=== PATIENT | male | born 1945 | race Caucasian/White ===

== ENCOUNTER 2025-01-23 15:00 | Emergency (ER) | payer OTHER, SELFPAY ==
[2025-01-23] VITALS (15 sets, daily range): BP systolic 116–145; BP diastolic 51–89; PULSE 64–87; TEMP 36.6–37.1; O2SAT 98–99; BMI 28.8
--- NOTE | 2025-01-23 15:26 | US_ITS ---
The [address] [address] Patient Name: WES WHITT MRN: [id number] date: 1945 Sex: M Assigned Patient Location: ED.MAIN Current Patient Location: ER Accession/Order Number: [id number] Exam Date: 01/23/2025 16:58 Report Date: 01/23/2025 17:06 At the request of: OANH MONTANA MD Procedure: US right upper quadrant Ultrasound right upper quadrant INDICATION: Abnormal labs, jaundice right upper quadrant pain for one week COMPARISON: CT abdomen pelvis 01/23/2025 FINDINGS: Unremarkable liver size. Slight heterogeneous echogenicity. This prominence of the intrahepatic ducts noted. The common bile duct measures 1.5 cm gallbladder wall 3.6 mm. Cholelithiasis noted. No definite pericholecystic fluid. Pancreas mostly obscured. US/US right upper quadrant IMPRESSION:: Heterogeneous liver with intrahepatic and extra hepatic biliary dilatation noted. Cholelithiasis and gallbladder wall thickening noted.. Obscured pancreas Impression dictated by: Camden Reynolds M.D. 01/23/2025 5:06 PM Dictation Location: [place] [address] Electronically authenticated by: [id number] Y Date: 01/23/2025 17:06
--- NOTE | 2025-01-23 15:27 | ECG_ITS ---
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 Measurements Intervals [place] Rate: 69 P: 52 CA: 150 QRS: 63 QRSD: 86 T: 26 QT: 364 QTc: 383 Interpretive Statements 1100 Sinus rhythm 9110 normal ECG Compared to ECG 05/13/2020 08:25:24 ST (T wave) deviation no longer present Electronically Signed On 01-24-2025 12:04:47 EDT by POLO COTA M.D.
--- NOTE | 2025-01-23 15:28 | ED_ITS ---
HPI HPI - General Adult General Chief complaint: Abdominal Pain Stated complaint: abnormal labs sent by dr jimenez Time Seen by Provider: 01/23/25 15:05 Source: patient Mode of arrival: walk-in Limitations: no limitations History of Present Illness HPI narrative: 79-year-old male presents for yellow eyes and epigastric pain. He was seen by his nurse practitioner today who sent him here. He notes recently his urine changed from normal to orange and now it's brown, like bourbon. He complains of mild epigastric pain and has never had these issues before. No fever or vomiting or diarrhea. He does not complain of chest pain or shortness of breath. Related Data Home Medications ?Medication ?Instructions ?Recorded ?Confirmed lisinopril 5 mg tablet 5 mg PO DAILY 01/23/2501/23 Allergies Allergy/AdvReac Type Severity Reaction Status Date / Time bee venom protein (honey bee) AdvReac Mild Swelling Verified 01/23/25 15:19 of Lip/Tongue/Throat Opioid HPI Opioid Management Most Recent Opioid Data: Last Pain Scale 7 Today, 15:25 Review of Systems ROS Narrative A ten point review of systems is negative except as noted above. PFSH PFSH Social History Little interest or pleasure in doing things: not at all Feeling down, depressed, or hopeless: not at all Exam Narrative Exam Narrative: Nurses note and vital signs reviewed and patient is not hypoxic. General: The patient appears well and in no apparent distress. Patient is resting comfortably on cart. Skin: Warm, dry, no pallor noted. There is no rash noted. Skin is minimally jaundiced. Head: Normocephalic, atraumatic Eye: Sclera are icteric Ears, Nose, Mouth, and Throat: oral mucosa is moist. Nares patent. Cardiovascular: Regular Rate and Rhythm Respiratory: Patient is in no distress, no accessory muscle use, lungs are clear to auscultation, no wheezing, rales or rhonchi Back: non-tender GI: Minimal tenderness in epigastric area Musculoskeletal: The patient has no evidence of calf tenderness, no pitting edema, symmetrical pulses noted bilaterally Neurological: A&O, normal speech Psychiatric: Cooperative Constitutional Vital Signs, click to edit/add: Last Vital Signs Temp 97.8 F 01/23/25 15:20 Pulse 68 01/23/25 17:30 Resp 22 H 01/23/25 17:30 BP 142/75 H 01/23/25 17:30 Pulse Ox 98 01/23/25 17:30 O2 Del Method Room Air 01/23/25 15:50 Course Vital Signs Vital signs: Vital Signs Blood Pressure 144/89 H 01/23/25 15:18 Pulse Oximetry 98 01/23/25 15:18 Temperature 97.8 F 01/23/25 15:20 Pulse Rate 68 01/23/25 17:30 Respiratory Rate 22 H 01/23/25 17:30 Blood Pressure 142/75 H 01/23/25 17:30 Pulse Oximetry 98 01/23/25 17:30 Oxygen Delivery Method Room Air 01/23/25 15:50 Medical Decision Making MDM Narrative Medical decision making narrative: The patient presents with jaundice and has elevated bilirubin of 11.7, 9.6 direct. White count is normal at 8.6 CT scan per radiologist as well as gallbladder ultrasound suggests enlarged common bile duct at 15 mm with some debris in the common bile duct. Case discussed with Dr. Jimenez and the patient and the patient is requesting transfer to [facility]. Differential Diagnosis Differential Diagnosis: Acute cholecystitis, common bile duct stone, hepatitis, pancreatic mass Lab Data Lab results reviewed: Yes I reviewed the patient's lab results Labs: Lab Results 01/23/25 01/23/25 Range/Units 15:40 15:43 WBC 8.6 (4.0-11.0) 10^3/uL RBC 4.82 (4.70-6.10) 10^6/uL Hgb 14.7 (14.0-18.0) g/dL Hct 43.5 (42.0-54.0) % MCV 90.2 (80.0-94.0) fL MCH 30.5 (25.9-34.0) pg MCHC 33.8 (29.9-35.2) g/dL RDW 13.7 (11.0-15.0) % Plt Count 290 (150-450) 10^3/uL MPV 9.1 L (9.5-13.5) fL Neut % (Auto) 79.0 H (43.0-75.0) % Lymph % (Auto) 9.9 L (20.5-60.0) % [place] % (Auto) 7.5 (1.7-12.0) % Eos % (Auto) 2.4 (0.9-7.0) % Baso % (Auto) 0.9 (0.2-2.0) % Neut # (Auto) 6.8 H (1.4-6.5) 10^3/uL Lymph # (Auto) 0.9 L (1.2-3.8) 10^3/uL [place] # (Auto) 0.7 (0.3-0.8) 10^3/uL Eos # (Auto) 0.2 (0.0-0.7) 10^3/uL Baso # (Auto) 0.1 (0.0-0.1) 10^3/uL Abs Immat Gran (auto) 0.03 (0.00-0.03) 10^3/uL Imm/Tot Granulo (auto) 0.3 (0.0-0.5) % Sodium 137 (136-145) mmol/L Potassium 4.4 (3.5-5.1) mmol/L Chloride 101 (98-107) mmol/L Carbon Dioxide 25.6 (21.0-32.0) mmol/L Anion Gap 14.8 BUN 18.0 (7.0-18.0) mg/dL Creatinine 1.16 (0.70-1.30) mg/dL Est GFR ( Amer) >60 (>=60 mL/min/1.73m^2) Est GFR (Non-Af Amer) >60 (>=60 mL/min/1.73m^2) BUN/Creatinine Ratio 15.5 Glucose 174 H (74-106) mg/dL Calcium 10.2 H (8.5-10.1) mg/dL Total Bilirubin 11.7 H (0.2-1.0) mg/dL Direct Bilirubin 9.6 H* (0.0-0.2) mg/dL AST 151 H (15-37) U/L ALT 311 H (16-63) U/L Alkaline Phosphatase 401 H (46-116) U/L Total Protein 7.3 (6.4-8.2) g/dL Albumin 3.3 L (3.4-5.0) g/dL Globulin 4.0 g/dL Albumin/Globulin Ratio 0.8 Amylase 32 (25-115) U/L Lipase 57.0 (16.0-77.0) U/L Urine Color Dk. orange (YELLOW) Urine Clarity Clear (CLEAR) Urine pH Color interference A (5.0-9.0) Ur Specific [place] 1.020 (1.005-1.025) Urine Protein Color interference A (NEG/TRACE) mg/dL Urine Glucose (UA) Color interference A (NEGATIVE) mg/dL Urine Ketones Color interference A (NEGATIVE) mg/dL Urine Occult Blood Color interference A (NEGATIVE) Urine Nitrite Color interference A (NEGATIVE) Urine Bilirubin Color interference A (NEGATIVE) Urine Urobilinogen Color interference A (0.2-1.0) EU/dL Ur Leukocyte Esterase Color interference A (NEGATIVE) Urine RBC 0-2 (0-2) #/HPF Urine WBC 2-5 A (NONE SEEN) #/HPF Ur Squamous Epith Cells Few A (NONE/RARE) #/LPF Urine Crystals None seen (None Seen) #/HPF Urine Bacteria Trace A (NONE SEEN) #/HPF Urine Casts None seen (NONE SEEN) #/LPF Urine Mucus Trace A (NONE SEEN) Ur Culture Indicated? No Imaging Data CT scan - abdomen: Radiologist's impression: ITS Impressions Upper Quadrant Ultrasound 01/23/25 15:26 IMPRESSION:: Heterogeneous liver with intrahepatic and extra hepatic biliary dilatation noted. Cholelithiasis and gallbladder wall thickening noted.. Obscured pancreas Impression dictated by: Camden Reynolds M.D. 01/23/2025 5:06 PM Dictation Location: [employer] Electronically authenticated by: [id number] Y Date: 01/23/2025 17:06 Abdomen/Pelvis CT 01/23/25 16:55 IMPRESSION: Intrahepatic intrahepatic biliary dilatation noted with questionable tapering distal common bile duct with common bile duct debris versus stones. Consider MRCP versus ERCP. Impression dictated by: Camden Reynolds M.D. 01/23/2025 5:13 PM Dictation Location: [employer] Electronically authenticated by: [id number] Y Date: 01/23/2025 17:13 ECG Data Attestation: I personally reviewed and interpreted this ECG as follows: (EKG on my interpretation shows sinus rhythm with a rate of 69 and no acute change) Discharge Plan Discharge Chief Complaint: Abdominal Pain Clinical Impression: Hyperbilirubinemia, Common bile duct (CBD) obstruction Patient Disposition: [facility] Time of Disposition Decision: 17:39 Discharge Location: The [facility] Condition: Fair Mode of Transportation: EMS
[2025-01-23 15:50] LABS: Clarity Urine CLEAR (CLEAR); Color Urine DK. ORANGE (YELLOW)
[2025-01-23 15:51] LABS: Basophils Absolute Auto 0.1 10^3/uL (0.0-0.1); Basophils Percent Auto 0.9 % (0.2-2.0); Eosinophils Absolute Auto 0.2 10^3/uL (0.0-0.7); Eosinophils Percent Auto 2.4 % (0.9-7.0); Hematocrit 43.5 % (42.0-54.0); Hemoglobin 14.7 g/dL (14.0-18.0); Immature Granulocytes Abs Auto 0.03 10^3/uL (0.00-0.03); Immature Granulocytes Pct Auto 0.3 % (0.0-0.5); Lymphocytes Absolute Auto 0.9 10^3/uL (1.2-3.8); Lymphocytes Percent Auto 9.9 % (20.5-60.0); Mean Corpuscular HGB Conc 33.8 g/dL (29.9-35.2); Mean Corpuscular Hemoglobin 30.5 pg (25.9-34.0); Mean Corpuscular Volume 90.2 fL (80.0-94.0); Mean Platelet Volume 9.1 fL (9.5-13.5); Monocytes Absolute Auto 0.7 10^3/uL (0.3-0.8); Monocytes Percent Auto 7.5 % (1.7-12.0); Neutrophils Absolute Auto 6.8 10^3/uL (1.4-6.5); Platelet Count 290 10^3/uL (150-450); Red Blood Count 4.82 10^6/uL (4.70-6.10); Red Cell Distribution Width 13.7 % (11.0-15.0); White Blood Count 8.6 10^3/uL (4.0-11.0)
[2025-01-23 15:55] LABS: Bilirubin Urine COLOR INTERFERENCE (NEGATIVE); Blood Urine COLOR INTERFERENCE (NEGATIVE); Glucose Urine UA COLOR INTERFERENCE mg/dL (NEGATIVE); Ketones Urine COLOR INTERFERENCE mg/dL (NEGATIVE); Leukocyte Esterase Urine COLOR INTERFERENCE (NEGATIVE); Nitrite Urine COLOR INTERFERENCE (NEGATIVE); Protein Urine COLOR INTERFERENCE mg/dL (NEG/TRACE); Urobilinogen Urine COLOR INTERFERENCE EU/dL (0.2-1.0); pH Urine COLOR INTERFERENCE (5.0-9.0)
[2025-01-23 15:57] LABS: Bacteria Urine TRACE #/HPF (NONE SEEN); Cast Seen? NONE SEEN #/LPF (NONE SEEN); Crystals Seen? None Seen #/HPF (None Seen); Mucus Urine TRACE (NONE SEEN); RBC Urine 0-2 #/HPF (0-2); Squamous Epithelial Cell Urine FEW #/LPF (NONE/RARE); Urine Culture Indicated NO
[2025-01-23 16:26] LABS: Albumin Globulin Ratio 0.8; Anion Gap 14.8; BUN Creatinine Ratio 15.5
[2025-01-23 16:28] LABS: Alanine Aminotransferase 311 U/L (16-63); Albumin Level 3.3 g/dL (3.4-5.0); Alkaline Phosphatase 401 U/L (46-116); Amylase 32 U/L (25-115); Aspartate Amino Transferase 151 U/L (15-37); Bilirubin Total 11.7 mg/dL (0.2-1.0); Calcium 10.2 mg/dL (8.5-10.1); Carbon Dioxide 25.6 mmol/L (21.0-32.0); Chloride 101 mmol/L (98-107); Estimated GFR (African America >60 (>=60 mL/min/1.73m^2); Estimated GFR (Non-African Ame >60 (>=60 mL/min/1.73m^2); Glucose 174 mg/dL (74-106); Potassium 4.4 mmol/L (3.5-5.1); Sodium 137 mmol/L (136-145); Total Protein 7.3 g/dL (6.4-8.2)
[2025-01-23 16:38] LABS: Bilirubin Direct 9.6 mg/dL (0.0-0.2)
--- NOTE | 2025-01-23 16:55 | CT_ITS ---
The [address] [address] Patient Name: WES WHITT MRN: [id number] date: 1945 Sex: M Assigned Patient Location: ER Current Patient Location: ER Accession/Order Number: [id number] Exam Date: 01/23/2025 17:08 Report Date: 01/23/2025 17:13 At the request of: OANH MONTANA MD Procedure: CT abdomen pelvis w con CT ABDOMEN AND PELVIS WITH INTRAVENOUS CONTRAST: CLINICAL HISTORY: Jaundice COMPARISON: Right upper quadrant ultrasound EARLIER TODAY TECHNIQUE: Spiral images were obtained through the abdomen and pelvis following the administration of intravenous contrast. This CT exam was performed using one or more following dose reduction techniques: Automated exposure control, adjustment of the mA and/or kV according to patient size, or use of iterative reconstruction technique. FINDINGS: Lung Bases: [Minimal bibasilar hypoventilatory changes and scarring.] Organs:Intrahepatic and extra hepatic biliary duct dilatation. Common bile duct measures 1.2 cm. Question focal narrowing distal common bile duct. There may be distal choledocholithiasis versus debris within the distal common bile duct on the coronal images. Cholelithiasis. Otherwise unremarkable liver enhancement. Spleen, adrenals, kidneys, and pancreas unremarkable. No peripancreatic fluid collections identified. [ GI: Mild retained stool. No bowel obstruction. Unremarkable appendix. Background colonic diverticulosis.[ Pelvis:[Bladder unremarkable. Prostate unremarkable.] Peritoneum/Retroperitoneum:No free air or free fluid. Mild plaque involving the nonaneurysmal aorta.[ Abd wall/Bones:Degenerative changes involving the lumbar spine. No suspicious osseous lesion.[ CT/CT abdomen pelvis w con IMPRESSION: Intrahepatic intrahepatic biliary dilatation noted with questionable tapering distal common bile duct with common bile duct debris versus stones. Consider MRCP versus ERCP. Impression dictated by: Camden Reynolds M.D. 01/23/2025 5:13 PM Dictation Location: [place] [address] Electronically authenticated by: [id number] Y Date: 01/23/2025 17:13
[2025-01-23] MEDS: PIPERACILLIN SODIUM/TAZOBACTAM 3.375 GM in 0.9 % SODIUM CHLORIDE 50 ML IV (17:58)
[2025-01-23 20:59] LABS: Ammonia 27 umol/L (11-32)
[2025-01-23] MEDS: KETOROLAC TROMETHAMINE 30 MG/ML VIAL IVP (21:31)
== END 2025-01-23 22:57 | disposition short-term general hospital (02) ==
PROVIDERS: Emergency Medicine; Emergency Provider Emergency Medicine; PCP Family Medicine
DX: K80.51 Calculus of bile duct without cholangitis or cholecystitis with obstruction (principal)
CPT/HCPCS: 36415; 74177; 76705; 80048; 80076; 81001; 82140; 82150; 83690; 85025; 93005; 96365; 96375; 99285; J1885; J2543; Q9967